=== PATIENT | female | born 1950 | race Two or more races ===

== ENCOUNTER 2016-10-20 10:38 | Emergency (ER) | payer MEDICARE, OTHER ==
[~2016-10-20] VITALS: Ht 162.6 cm; Wt 69.5 kg
[~2016-10-20 10:38] MED LIST: HYDR25TA PO; LISI40TA4 PO; METF500T4 PO
[2016-10-20] MEDS ORDERED: METO50 PO (10:44)
[2016-10-20 10:52] LABS: GLUCOSE,POINT OF CARE 176 MG/DL (70-110)
[2016-10-20 11:07] VITALS: BP 128/86
[2016-10-20] MEDS ORDERED: IBUPROFEN 400 MG TABLET PO ONE (11:30)
== END 2016-10-20 11:33 | disposition home or self-care (01) ==
LOC: EMS 10:39
DX: S59.911A Unspecified injury of right forearm, initial encounter (principal); E11.9 Type 2 diabetes mellitus without complications; I11.9 Hypertensive heart disease without heart failure; W22.8XXA Striking against or struck by other objects, initial encounter; Y93.89 Activity, other specified; Y92.59 Other trade areas as the place of occurrence of the external cause; Y99.8 Other external cause status
CPT/HCPCS: 82962; 99282